=== PATIENT | female | born 1970 | race Two or more races ===

== ENCOUNTER 2017-09-21 14:39 | Inpatient (IN) | payer OTHER ==
[~2017-09-21] VITALS: Ht 154.9 cm; Wt 78.0 kg
[2017-09-21 15:33] LABS: BASOPHIL (%) 0.5 % (0-1); EOSINOPHIL (%) 0.5 % (0-5); HEMATOCRIT 39.4 % (36.0-46.0); HEMOGLOBIN 12.8 G/DL (11.9-15.5); IMMATURE GRANULOCYTE (%) 0.6 % (0.0-0.7); LYMPHOCYTE (%) 19.3 % (15-42); LYMPHOCYTE COUNT 1.6 K/uL (1.0-2.8); MCH 26.7 PG (29.0-34.0); MCHC 32.5 G/DL (30.0-36.0); MCV 82.1 FL (83-99); MONOCYTE COUNT 0.3 K/uL (0-0.8); NEUTROPHIL (%) 75.1 % (45-76); NEUTROPHIL COUNT 6.3 K/uL (1.8-6.4); PLATELET COUNT 245 K/uL (156-360); RBC DIS.WIDTH-CV 13.9 % (11.8-14.6); RBC DIS.WIDTH-SD 41.3 % (39-53); WHITE BLOOD COUNT 8.3 K/uL (4.1-10.2)
[2017-09-21 15:43] LABS: ALBUMIN 4.4 g/dL (3.2-4.8)
[2017-09-21 15:44] LABS: CHLORIDE 102 mEq/L (99-109); POTASSIUM 3.9 mEq/L (3.7-5.4); SODIUM 138 mEq/L (136-147)
[2017-09-21 15:46] LABS: GLUCOSE 104 mg/dL (70-99); TOTAL PROTEIN 8.5 g/dL (6.4-8.3)
[2017-09-21 15:48] LABS: TOTAL BILIRUBIN 0.3 mg/dL (0.0-1.0)
[2017-09-21 15:50] LABS: ALKALINE PHOSPHATASE 67 IU/L (3-129)
[2017-09-21 15:51] LABS: AST (GOT) 23 IU/L (2-34); DIRECT BILIRUBIN 0.1 mg/dL (0.0-0.3); UREA NITROGEN (BUN) 12 mg/dL (9-23)
[2017-09-21 15:53] LABS: ALT (GPT) 26 IU/L (3-49); LIPASE 67 U/L (1.0-51.0)
[2017-09-21 15:59] LABS: QUANTITATIVE HCG < 4.0 MIU/ML
[2017-09-21 16:00] LABS: GFR ESTIMATE (CALCULATED) > 59 mL/min/
[2017-09-21 18:57] LABS: INTER. NORMALIZED RATIO 1.1
[2017-09-21 19:00] LABS: PTT 28.6 SEC (25-37)
[2017-09-21] MEDS ORDERED: TYLENOL REGULA325 MG PO (20:22)
[2017-09-21 21:30] VITALS: BP 142/85
[2017-09-21 23:10] VITALS: BP 117/65
[2017-09-22 03:30] VITALS: BP 135/71
[2017-09-22 08:32] VITALS: BP 111/56
[2017-09-22 11:11] VITALS: BP 113/51
[2017-09-22 20:07] VITALS: BP 147/68
[2017-09-22 22:29] VITALS: BP 135/78
[2017-09-23 08:26] VITALS: BP 120/57
[2017-09-23 15:37] VITALS: BP 135/75
[2017-09-24 01:29] VITALS: BP 168/80
[2017-09-24 04:37] VITALS: BP 121/67
[2017-09-24 08:07] VITALS: BP 121/66
[2017-09-24 16:51] VITALS: BP 152/88
[2017-09-24 20:16] VITALS: BP 137/79
[2017-09-24 23:56] VITALS: BP 125/67
[2017-09-25 08:47] VITALS: BP 128/67
[2017-09-25 09:06] LABS: BASOPHIL (%) 0.4 % (0-1); EOSINOPHIL (%) 1.2 % (0-5); EOSINOPHIL COUNT 0.1 K/uL (0-0.3); HEMATOCRIT 37.5 % (36.0-46.0); HEMOGLOBIN 12.3 G/DL (11.9-15.5); IMMATURE GRANULOCYTE (%) 0.7 % (0.0-0.7); LYMPHOCYTE (%) 16.5 % (15-42); LYMPHOCYTE COUNT 1.4 K/uL (1.0-2.8); MCH 26.6 PG (29.0-34.0); MCHC 32.8 G/DL (30.0-36.0); MONOCYTE COUNT 0.7 K/uL (0-0.8); NEUTROPHIL (%) 73.2 % (45-76); NEUTROPHIL COUNT 6.1 K/uL (1.8-6.4); PLATELET COUNT 205 K/uL (156-360); RBC DIS.WIDTH-CV 13.6 % (11.8-14.6); RBC DIS.WIDTH-SD 39.8 % (39-53); RED BLOOD COUNT 4.63 M/uL (3.80-5.20); WHITE BLOOD COUNT 8.3 K/uL (4.1-10.2)
[2017-09-25 09:27] LABS: ALBUMIN 3.6 G/DL (3.2-4.8); ALKALINE PHOSPHATASE 59 IU/L (3-129); ALT (GPT) 17 IU/L (3-49); AST (GOT) 22 IU/L (2-34); CHLORIDE 98 MEQ/L (99-109); CREATININE 0.9 MG/DL (0.6-1.3); GFR ESTIMATE (CALCULATED) > 59 mL/min/; GLUCOSE 106 mg/dL (70-99); SODIUM 134 MEQ/L (136-147); TOTAL BILIRUBIN 0.7 MG/DL (0.0-1.0); UREA NITROGEN (BUN) 8 mg/dL (9-23)
[2017-09-25] MEDS ORDERED: HYDROCODON-ACE1 EAC7 PO (10:09)
[2017-09-25] MEDS ORDERED: TYLENOL REGULA325 MG PO (10:09)
[2017-09-25] MEDS ORDERED: MOTRIN400 MG PO (10:09)
[2017-09-25 12:08] VITALS: BP 134/87
== END 2017-09-25 16:19 | disposition home or self-care (01) | DRG 355 ==
LOC: EME 14:39 → 2EAST 20:17 → EDOF 20:17 → ENRESERV 20:28 → 2EAST 21:14
PROVIDERS: Emergency Medicine; Physician Assistant Medical; Surgery
PROC: 0WUF4JZ Supplement Abdominal Wall with Synthetic Substitute, Percutaneous Endoscopic Approach (ICD-10-PCS; principal; 2017-09-21)
DX: K45.8 Other specified abdominal hernia without obstruction or gangrene (principal); K66.8 Other specified disorders of peritoneum; R11.0 Nausea
CPT/HCPCS: 74177; 80048; 80053; 80076; 82948; 83690; 84702; 85025; 85610; 85730; 86850; 86870; 86900; 86901; 86920; 93005; 99281; 99285; C1781; G0378; J0131; J0330; J0690; J1100; J1170; J1885; J2250; J2270; J2405; J2710; J3010; J7040; J7120